=== PATIENT | male | born 1980 | race African-American/Black ===

== ENCOUNTER 2017-05-29 17:37 | Observation (INO) | payer OTHER ==
[~2017-05-29] VITALS: Ht 195.6 cm; Wt 85.8 kg
[~2017-05-29 17:37] MED LIST: KEFLEX500 MG PO; NAPROXEN500 MG PO
[2017-05-29 18:32] LABS: HEMATOCRIT 46.5 % (38.0-50.0); MCH 32.8 PG (29.0-34.0); MCHC 34.4 G/DL (30.0-36.0); MCV 95.3 FL (86-99); PLATELET COUNT 228 K/uL (156-360); RBC DIS.WIDTH-CV 13.2 % (11.8-14.6); RBC DIS.WIDTH-SD 46.6 % (39-53); RED BLOOD COUNT 4.88 M/uL (4.00-5.50); WHITE BLOOD COUNT 10.2 K/uL (4.1-10.2)
[2017-05-29 18:40] LABS: CHLORIDE 104 mEq/L (99-109); POTASSIUM 4.5 mEq/L (3.7-5.4); SODIUM 140 mEq/L (136-147)
[2017-05-29 18:42] LABS: GLUCOSE 67 mg/dL (70-99)
[2017-05-29 18:46] LABS: CREATININE 1.9 mg/dL (0.6-1.3); GFR ESTIMATE (CALCULATED) 52 mL/min/ (58.99-99999)
[2017-05-29 18:47] LABS: UREA NITROGEN (BUN) 17 mg/dL (9-23)
[2017-05-29 18:54] LABS: TROP-I INTERPRETATION NEGATIVE; TROPONIN-I < 0.01 ng/mL (0.0-0.30)
[2017-05-29 20:12] LABS: MAGNESIUM 2.4 mg/dL (1.3-2.7)
[2017-05-29 20:50] LABS: APPEARANCE CLOUDY ((CLEAR)); BILIRUBIN NEGATIVE; BLOOD NEGATIVE; COLOR YELLOW ((YELLOW)); GLUCOSE (STRIP) NEGATIVE; KETONES NEGATIVE; LEUKOCYTES TRACE; NITRITE NEGATIVE; PROTEIN (STRIP) NEGATIVE; SPECIFIC GRAVITY 1.018 (1.000-1.030); UROBILINOGEN 0.2 MG/DL (0.2-1.0)
[2017-05-29 20:52] LABS: CREATINE KINASE 275 IU/L (1-294)
[2017-05-29 20:59] LABS: COCAINE PRESUMPTIVE POSITIVE (150 ng/mL); PHENCYCLIDINE NEGATIVE (25 ng/mL); THC CANNABINOIDS PRESUMPTIVE POSITIVE (50 ng/mL)
[2017-05-29 21:00] LABS: AMPHETAMINE NEGATIVE (500 ng/mL); BARBITURATES NEGATIVE (200 ng/mL); BENZODIAZEPINES NEGATIVE (150 ng/mL); BUPRENORPHINE NEGATIVE (10 ng/mL); METHADONE NEGATIVE (200 ng/mL); METHAMPHETAMINE NEGATIVE (500 ng/mL); OPIATES (MORPHINE) NEGATIVE (100 ng/mL); OXYCODONE NEGATIVE (100 ng/mL); PROPOXYPHENE NEGATIVE (300 ng/mL); TRICYCLIC ANTIDEPRESSANTS NEGATIVE (300 ng/mL)
[2017-05-29 21:16] LABS: AMORPHOUS URATES CRYSTALS 4+; BACTERIA 1+ /HPF; EPITHELIAL CELLS NONE SEEN /HPF; MUCUS NONE SEEN /LPF; RED BLOOD CELLS 0-5 /HPF (0-5); WHITE BLOOD CELLS 0-5 /HPF (0-5)
[2017-05-30 00:26] VITALS: BP 134/84
[2017-05-30 00:51] LABS: TROP-I INTERPRETATION NEGATIVE; TROPONIN-I < 0.01 ng/mL (0.0-0.30)
[2017-05-30 05:05] VITALS: BP 94/54
[2017-05-30 05:51] LABS: HEMATOCRIT 42.9 % (38.0-50.0); HEMOGLOBIN 14.2 G/DL (12.5-16.6); MCH 31.6 PG (29.0-34.0); MCHC 33.1 G/DL (30.0-36.0); MCV 95.5 FL (86-99); PLATELET COUNT 215 K/uL (156-360); RBC DIS.WIDTH-CV 13.2 % (11.8-14.6); RBC DIS.WIDTH-SD 47.1 % (39-53); RED BLOOD COUNT 4.49 M/uL (4.00-5.50); WHITE BLOOD COUNT 9.3 K/uL (4.1-10.2)
[2017-05-30 06:11] LABS: CHLORIDE 109 MEQ/L (99-109); CREATININE 1.8 MG/DL (0.6-1.3); GFR ESTIMATE (CALCULATED) 55 mL/min/ (58.99-99999); POTASSIUM 4.1 MEQ/L (3.7-5.4); SODIUM 138 MEQ/L (136-147); UREA NITROGEN (BUN) 19 mg/dL (9-23)
[2017-05-30 06:12] LABS: GLUCOSE 85 mg/dL (70-99)
[2017-05-30 06:13] LABS: TROP-I INTERPRETATION NEGATIVE; TROPONIN-I < 0.01 ng/mL (0.0-0.30)
[2017-05-30 07:43] VITALS: BP 128/71
[2017-05-30 10:54] VITALS: BP 109/54
== END 2017-05-30 14:29 | disposition home or self-care (01) ==
LOC: EME 17:37 → EDOF 22:30 → 5WEST 22:30 → ENRESERV 22:32 → 5WEST 05-30 00:18
PROVIDERS: Hospitalist; Physician Assistant
DX: R07.9 Chest pain, unspecified (principal); F14.10 Cocaine abuse, uncomplicated; N28.9 Disorder of kidney and ureter, unspecified; R00.2 Palpitations; R11.0 Nausea; R42 Dizziness and giddiness; R61 Generalized hyperhidrosis; R51 Headache; F17.210 Nicotine dependence, cigarettes, uncomplicated
CPT/HCPCS: 70450; 71046; 71275; 80048; 81003; 82550; 83735; 84484; 84999; 85027; 93005; 93306; 99281; 99285; G0378; J7030